=== PATIENT | female | born 1940 | race Two or more races ===

== ENCOUNTER 2016-10-09 07:32 | Day surgery (SDC) | payer OTHER ==
[~2016-10-09] VITALS: Ht 165.1 cm; Wt 63.0 kg
[2016-10-09 08:10] VITALS: BP 140/78
[2016-10-09 10:13] VITALS: BP 140/78
== END 2016-10-09 11:35 | disposition home or self-care (01) ==
LOC: DS 07:32 → GI 09:30 → OR 09:30 → DS 11:35
PROVIDERS: Internal Medicine Gastroenterology
PROC: 0DBH8ZZ Excision of Cecum, Via Natural or Artificial Opening Endoscopic (ICD-10-PCS; principal; 2016-10-09 09:30)
PROC: 0DBG8ZZ Excision of Left Large Intestine, Via Natural or Artificial Opening Endoscopic (ICD-10-PCS; 2016-10-09 09:30)
DX: Z12.11 Encounter for screening for malignant neoplasm of colon (principal); D12.0 Benign neoplasm of cecum; D12.2 Benign neoplasm of ascending colon; D17.79 Benign lipomatous neoplasm of other sites; J45.909 Unspecified asthma, uncomplicated; E11.9 Type 2 diabetes mellitus without complications; I10 Essential (primary) hypertension; M19.90 Unspecified osteoarthritis, unspecified site; Z68.22 Body mass index [BMI] 22.0-22.9, adult
CPT/HCPCS: 45378; J1200; J1610; J2250; J2310; J3010; J3490

== ENCOUNTER 2017-02-24 06:11 | Inpatient (IN) | payer OTHER ==
[2017-02-17 12:50] LABS: CALCIUM 9.1 mg/dL (8.5-10.1); CARBON DIOXIDE 27.7 mmol/L (21-32); CHLORIDE SERUM 106 mmol/L (98-107); GLUCOSE SERUM 139 mg/dL (74-106); POTASSIUM SERUM 4.7 mmol/L (3.5-5.1); SODIUM SERUM 140 mmol/L (136-145)
[2017-02-17 12:59] LABS: microscopic required? YES; urine erythrocyte NEGATIVE (NEGATIVE)
[2017-02-17 12:59] LABS: BASOPHIL % 0.4 % (0-2); PLATELET COUNT 192 x10^3mcL (130-400); RED CELL DISTRIBUTION WIDTH 12.9 % (11.5-14.5)
[~2017-02-24] VITALS: Ht 160 cm; Wt 65.8 kg
[2017-02-24 06:31] VITALS: BP 147/74
[2017-02-24 12:36] VITALS: BP 146/76
[2017-02-24 15:45] LABS: MAGNESIUM 1.5 mg/dL (1.8-2.4)
[2017-02-24 15:46] LABS: CHOLESTEROL/HDL RATIO 2.4
[2017-02-24 15:53] LABS: FREE T4 1.2 ng/dL (0.76-1.46); FREE THYROXINE INDEX 3.1 ug/dL (1.4-4.5); T4(THYROXINE) 8.4 ug/dL (4.7-13.3)
[2017-02-24 16:06] LABS: T3 TOTAL 0.99 ng/mL
[2017-02-24 21:57] VITALS: BP 118/47
[2017-02-25] VITALS (7 sets, daily range): BP systolic 104–136; BP diastolic 45–53
[2017-02-25 07:21] LABS: CALCIUM 7.7 mg/dL (8.5-10.1); CARBON DIOXIDE 24.3 mmol/L (21-32); CHLORIDE SERUM 107 mmol/L (98-107); CREATININE SERUM 0.9 mg/dL (0.6-1.0); GLUCOSE SERUM 145 mg/dL (74-106); POTASSIUM SERUM 4.1 mmol/L (3.5-5.1); SODIUM SERUM 138 mmol/L (136-145)
[2017-02-25 08:04] LABS: BASOPHIL % 0.3 % (0-2); PLATELET COUNT 129 x10^3mcL (130-400)
[2017-02-25] MEDS ORDERED: LOPRESSOR50 M1 PO (15:11)
[2017-02-25] MEDS ORDERED: METFORMIN HCL500 MG PO (15:11)
[2017-02-25] MEDS ORDERED: NOR5 PO (15:12)
[2017-02-25] MEDS ORDERED: METOCLOPRAMIDE10 M2 PO (15:12)
[2017-02-25] MEDS ORDERED: GOOD SENSE OMEP20 MG PO (15:13)
[2017-02-25] MEDS ORDERED: COZAAR100 MG PO (15:13)
[2017-02-25] MEDS ORDERED: ISOSORBIDE MONO60 MG PO (15:13)
[2017-02-25] MEDS ORDERED: ATORVASTATIN CA40 M1 PO (15:14)
[2017-02-25 19:59] LABS: UA SPECIFIC GRAVITY 1.005 (1.005-1.035); microscopic required? YES
[2017-02-25 20:00] LABS: urine erythrocyte TRACE (NEGATIVE)
[2017-02-26 05:27] VITALS: BP 141/42
[2017-02-26 06:30] LABS: CALCIUM 7.7 mg/dL (8.5-10.1); CARBON DIOXIDE 25.2 mmol/L (21-32); CHLORIDE SERUM 107 mmol/L (98-107); CREATININE SERUM 0.8 mg/dL (0.6-1.0); GLUCOSE SERUM 216 mg/dL (74-106); MAGNESIUM 1.8 mg/dL (1.8-2.4); POTASSIUM SERUM 3.7 mmol/L (3.5-5.1); SODIUM SERUM 139 mmol/L (136-145)
[2017-02-26 07:41] LABS: BASOPHIL % 0.3 % (0-2); RED CELL DISTRIBUTION WIDTH 13.2 % (11.5-14.5)
[2017-02-26 07:42] LABS: PLATELET COUNT 113 x10^3mcL (130-400)
[2017-02-26 07:46] LABS: rbc morphology (normal/abnorm) ABNORMAL (NORMAL)
[2017-02-26 08:57] VITALS: BP 146/68
[2017-02-26 13:10] VITALS: BP 116/52
[2017-02-26 16:45] VITALS: BP 139/59
[2017-02-26 21:44] VITALS: BP 133/72
[2017-02-27 05:32] VITALS: BP 130/79
[2017-02-27 09:53] VITALS: BP 129/60
[2017-02-27 12:54] LABS: BASOPHIL % 0.3 % (0-2)
[2017-02-27 13:10] VITALS: BP 129/73
[2017-02-27 14:14] LABS: PLATELET COUNT 170 x10^3mcL (130-400)
[2017-02-27] MEDS ORDERED: LOV30I SC (17:47)
[2017-02-27 18:02] VITALS: BP 129/73
== END 2017-02-27 18:51 | DRG 469 ==
LOC: DU 06:11 → MU 02-27 13:59
PROVIDERS: Neuromusculoskeletal Medicine, Sports Medicine; ADMIT Family Medicine
PROC: 0SRC0J9 Replacement of Right Knee Joint with Synthetic Substitute, Cemented, Open Approach (ICD-10-PCS; principal; 2017-02-24 07:30)
DX: M17.11 Unilateral primary osteoarthritis, right knee (principal); E43 Unspecified severe protein-calorie malnutrition; I16.0 Hypertensive urgency; E83.42 Hypomagnesemia; E11.65 Type 2 diabetes mellitus with hyperglycemia; E11.51 Type 2 diabetes mellitus with diabetic peripheral angiopathy without gangrene; K21.9 Gastro-esophageal reflux disease without esophagitis; D64.9 Anemia, unspecified; Z68.25 Body mass index [BMI] 25.0-25.9, adult; Z95.0 Presence of cardiac pacemaker
CPT/HCPCS: 83880; 84439; 94150; 97110-GP; 97116-GP; 97139; 97530-GP; C1713; C1776; J0690; J1650; J1815; J1885; J1956; J2250; J2270; J2405; J2704; J2916; J3010; J3490; J7030; J7613; J8597; Q0092